=== PATIENT | male | born 1985 | race Caucasian/White ===

== ENCOUNTER 2017-10-03 07:20 | Emergency (ER) | payer SELFPAY ==
--- NOTE | 2017-10-03 07:35 | ED Physician Documentation ---
History of Present Illness - Stated complaint Stated Complaint: CHEST/BACK PX/THROAT SWOLLEN - Additonal information Additional information: hx from pt healthy 32 male sore throat for a week also mylagias and chills had an allergic rxn to passion fruit with facial swelling a week ago and got better with benadryl today the throat pain sread down to his chest and back with some soa and he thought he was having another allergic rxn and he took benadryl and got better also took motrin and his throat pain is mild now no abd pain no fhx CAD, no HTN DM HLD, does smoke and was advised not to Review of Systems Constitutional: reports: Chills, Myalgias. denies: Fever Throat: reports: Sore throat Cardiac: reports: Chest pain / pressure Respiratory: reports: Dyspnea. denies: Cough GI: denies: Abdominal Pain, Nausea, Vomiting Musculoskeletal: reports: Back pain Immunocompromised: denies: Immunocompromised PD PAST MEDICAL HISTORY - Present Medications Home Medications: Ambulatory Orders Medication Instructions Recorded Confirmed No Known Home Medications [No 10/03/17 10/03/17 Known Home Medications] - Allergies Allergies/Adverse Reactions: Allergies Allergy/AdvReac Type Severity Reaction Status Date / Time Sulfa (Sulfonamide Allergy Unknown Verified 10/03/17 07:48 Antibiotics) PD ED PE NORMAL - Vitals Vital signs reviewed: Yes - General General: Alert and oriented X 3 - HEENT HEENT: Moist mucous membranes. No: Pharynx benign (erythema and swelling, no exudate but odor suggests strep, ant but no posterior adenopathy) - Neck Neck: Supple, no meningeal sign - Cardiac Cardiac: RRR - Respiratory Respiratory: No respiratory distress, Clear bilaterally - Abdomen Abdomen: Soft, Non tender, No organomegaly - Derm Derm: Normal color - Extremities Extremities: No deformity, No edema, No calf tenderness / cord - Neuro Neuro: Alert and oriented X 3 Results - Vitals Vitals: Vital Signs - 24 hr 10/03/17 07:36 Temperature 36.1 C L Heart Rate 77 Respiratory 18 Rate Blood Pressure 100/71 O2 Saturation 98 Oxygen O2 Source Room air - Labs Labs: Laboratory Tests 10/03/17 07:30 Group A Strep Rapid Negative - Rads (name of study) CXR Radiology: See rad report (neg) PD MEDICAL DECISION MAKING - ED course ED course: sore throat chills and myalgias sx included CP but not suggestive of ACS CXR neg for pneumonia pneumo cardiomegaly aneurysm/dissection exam suggests strep but suprisingly rapid strep neg - cx is pending pt sx are better with motin and benadryl at this time will reassure and dc and will call if throat cx + Departure - Departure Disposition: Home, Self Care Clinical Impression: Pharyngitis Qualifiers: Pharyngitis/tonsillitis etiology: unspecified etiology Qualified Code(s): J02.9 - Acute pharyngitis, unspecified Condition: Good Instructions: ED Strep Pharyngitis Poss Comments: Your throat looks like you have strep throat But the rapid strep test was negative An official throat culture will also be run and the ER staff will call you if it is positive and also call in antibiotics if needed The xray was fine as well - no pneumonia, collapsed lung, enlarged heart, or aneurysm For now recommend throat lozenges and motrin as needed Return if significantly worse especially if having more chest pain Forms: Activity restrictions
--- NOTE | 2017-10-03 07:55 | XRAY Report ---
EXAM: CHEST RADIOGRAPHY EXAM DATE: 10/03/2017 07:44 AM. CLINICAL HISTORY: Cp back pain. COMPARISON: None. TECHNIQUE: 2 views. FINDINGS: Lungs/Pleura: No focal opacities evident. No pleural effusion. No pneumothorax. Normal volumes. Mediastinum: Heart and mediastinal contours are unremarkable. Other: None. IMPRESSION: Normal 2-view chest radiography. [facility] Referring Provider Line: [phone] SITE ID: [id number]
--- NOTE | 2017-10-03 07:55 | XRAY Preliminary Report ---
Exam: XR CHEST 2 VIEW X-RAY IMPRESSION: Normal 2-view chest radiography. [facility] SITE ID: [id number]
[2017-10-03 08:55] VITALS: BP 110/70
== END 2017-10-03 09:07 | disposition home or self-care (01) ==
LOC: ED 07:20
DX: J02.9 Acute pharyngitis, unspecified (principal)
CPT/HCPCS: 71046; 87070; 87077; 87430; 93005; 99283; 99284